=== PATIENT | female | born 1995 ===

== ENCOUNTER 2016-09-12 14:04 | Emergency (ER) | payer BC ==
[2016-09-12 14:46] VITALS: BP 167/98
--- NOTE | 2016-09-12 15:39 | UC ---
Eye Complaint HPI - HPI Summary HPI Summary: RIGHT EYE REDNESS X 2 DAYS USED OLD CONTACTS , NO EYE PAIN , NO DISCHARGE, NO CHANGE IN VISION - History of Current Complaint Chief Complaint: UCEye Stated Complaint: EYE COMPLAINT Time Seen by Provider: 09/12/16 15:33 Hx Obtained From: Patient Hx Last Menstrual Period: 09/04/16 ?: No Onset/Duration: Gradual Onset, Lasting Days - 2, Still Present Timing: Constant Severity Initially: Moderate Severity Currently: Moderate Location of Injury: Conjunctiva - RIGHT EYE Aggravating Factor(s): Contact Lens Alleviating Factor(s): Nothing Associated Signs And Symptoms: Negative: Photophobia, Drainage (Clear), Drainage (Purulent), Vision Impairment Bilateral, Vision Impairment Right, Vision Impairment Left, Fever, Swelling - Allergies/Home Medications Allergies/Adverse Reactions: Allergies Allergy/AdvReac Type Severity Reaction Status Date / Time No Known Allergies Allergy Verified 09/12/16 14:46 Home Medications: Home Medications Amphetamine-Dextroamphetamine [Adderall Xr 10 mg-] 25 mg PO DAILY 09/12/16 [ History Confirmed 09/12/16] PMH/Surg Hx/FS Hx/Imm Hx Respiratory History Of: Reports: Asthma - exercise induced - Surgical History Surgical History: Yes Surgery Procedure, Year, and Place: ACL x2. Arthroscopic surgery X3 - Family History Known Family History: Negative: Diabetes - Social History Alcohol Use: Rare Substance Use Type: None Smoking Status (MU): Never Smoked Tobacco Review of Systems Constitutional: Negative Skin: Negative Eyes: Eye Redness - RIGHT EYE ENT: Negative Respiratory: Negative Cardiovascular: Negative Gastrointestinal: Negative All Other Systems Reviewed And Are Negative: Yes Physical Exam Triage Information Reviewed: Yes Appearance: Well-Appearing, No Pain Distress, Well-Nourished Vital Signs: Initial Vital Signs Temp 98.5 F 09/12/16 14:41 Pulse 62 09/12/16 14:41 Resp 14 09/12/16 14:41 BP 167/98 09/12/16 14:41 Pulse Ox 100 09/12/16 14:41 Eyes: Positive: Conjunctiva Inflamed - RIGHT EYE. Negative: Discharge ENT Exam: Normal ENT: Positive: Normal ENT inspection, Hearing grossly normal, Pharynx normal Neck: Positive: Supple, Nontender, No Lymphadenopathy Respiratory: Positive: Chest non-tender, Lungs clear, Normal breath sounds Cardiovascular: Positive: RRR, No Murmur, Pulses Normal Eye Complaint Course/Dx - Differential Dx/Diagnosis Provider Diagnoses: CONJUNCTIVITIS Discharge - Discharge Plan Condition: Stable Disposition: HOME Prescriptions: Ciprofloxacin 0.3% OPTH.ML* [Cipro 0.3% Opth*] 1 drop RIGHT EYE Q2H #1 btl Patient Education Materials: Conjunctivitis (ED) Additional Instructions: FOLLOW UP NEEDED
== END 2016-09-12 15:44 | disposition home or self-care (01) ==
LOC: UCCORT 14:04
DX: H10.31 Unspecified acute conjunctivitis, right eye (principal); J45.990 Exercise induced bronchospasm
CPT/HCPCS: 99202; G0463